=== PATIENT | male | born 1970 | race African-American/Black ===

== ENCOUNTER 2017-11-03 08:22 | Emergency (ER) | payer OTHER ==
[~2017-11-03] VITALS: Ht 177.8 cm; Wt 106.6 kg
[~2017-11-03 08:22] MED LIST: NAPROSYN500 MG PO; NOHOMEMEDICATIONS; NORCO 5-325 TA1 EACH PO
[2017-11-03] MEDS ORDERED: HYDROCHLOROTHIA25 M2 PO (08:37)
[2017-11-03] MEDS ORDERED: NORCO 5-325 TA1 EACH PO (09:41)
[2017-11-03 10:00] VITALS: BP 130/79
== END 2017-11-03 10:02 | disposition home or self-care (01) ==
LOC: ER 08:22
DX: S16.1XXA Strain of muscle, fascia and tendon at neck level, initial encounter (principal); S13.4XXA Sprain of ligaments of cervical spine, initial encounter; S20.219A Contusion of unspecified front wall of thorax, initial encounter; S39.012A Strain of muscle, fascia and tendon of lower back, initial encounter; S33.5XXA Sprain of ligaments of lumbar spine, initial encounter; V89.0XXA Person injured in unspecified motor-vehicle accident, nontraffic, initial encounter; Y93.89 Activity, other specified; Y92.89 Other specified places as the place of occurrence of the external cause; Y99.8 Other external cause status